=== PATIENT | female | born 1970 | race Two or more races ===

== ENCOUNTER 2023-12-15 10:27 | Emergency (ER) | payer OTHER ==
[~2023-12-15] VITALS: Ht 162.6 cm; Wt 136.1 kg
[2023-12-15] MEDS ORDERED: BACTRIM DS TAB1 EACH PO (12:21)
[2023-12-15] MEDS ORDERED: CEFTRIAXONE SODIUM 1,000 MG VIAL IM ONE (12:30)
== END 2023-12-15 12:35 | disposition home or self-care (01) ==
LOC: ER 10:27
DX: N76.0 Acute vaginitis (principal)

== ENCOUNTER 2023-12-26 05:44 | Inpatient (IN) | payer OTHER ==
[~2023-12-26] VITALS: Ht 162.6 cm; Wt 129.7 kg
[~2023-12-26 05:44] MED LIST: BACTRIM DS TAB1 EACH PO
[2023-12-26] MEDS ORDERED: METHYLPREDNISOLONE SOD SUCC 125 MG VIAL IV STA (06:17)
[2023-12-26] MEDS ORDERED: MAGNESIUM SULFATE IN WATER 4 GM/100 ML PIGGYBACK IV STA (06:18)
[2023-12-26] MEDS ORDERED: IPRATROPIUM BROMIDE 0.5 MG/2.5 ML AMPUL.NEB IH STA (06:19)
[2023-12-26] MEDS ORDERED: ALBUTEROL SULFATE 3 ML/2.5 MG AMPUL.NEB IH SCH (06:30)
[2023-12-26 07:18] LABS: HEMATOCRIT 38.6 % (36.0-45.00); HEMOGLOBIN 12.9 g/dL (12.0-15.00); MEAN CELL VOLUME 83.6 fL (80.00-100.00); MEAN CORPUSCULAR HGB CONC 33.5 g/dl (32.0-36.0); PLATELET COUNT 251 K/uL (150-450); RED BLOOD COUNT 4.61 M/uL (4.00-6.00); RED CELL DISTRIBUTION WIDTH 14.9 % (11.5-14.5)
[2023-12-26] MEDS ORDERED: INSULIN REGULAR, HUMAN 1,000 UNIT/10 ML UNITS SUBCUTANEO STA (07:48)
[2023-12-26] MEDS ORDERED: FAMOTIDINE/PF 20 MG/2 ML VIAL IV SCH (11:46)
[2023-12-26] MEDS ORDERED: levoFLOXacin IN DEXTROSE 5 % 150 ML IV SCH (11:47)
[2023-12-26] MEDS ORDERED: METHYLPREDNISOLONE SOD SUCC 40 MG VIAL IV SCH (11:48)
[2023-12-26 12:06] LABS: ABG PH 7.363 (7.35-7.45); ABG PO2 73.1 mmHg (80-100); BASE EXCESS -2.9 mmol/l; BICARBONATE 22.2 mmol/l (23-25); SaO2 93.7 %; Tco2 23.5 mmol/l; o2 21 %; puncture site RADIAL LEFT
[2023-12-26 12:07] LABS: allen test SATISFACTORY
[2023-12-26] MEDS ORDERED: IPRATROPIUM/ALBUTEROL SULFATE 3 ML AMPUL.NEB IH SCH (13:00)
[2023-12-26 13:22] LABS: CALCIUM 8.6 mg/dL (8.5-10.1); CREATININE SERUM 1.27 mg/dL (0.55-1.02); GFR 44.02; INR < 0.93; PARTIAL THROMBOPLASTIN TIME 25.4 SECONDS (22.0-34.0); POTASSIUM 3.97 mEq/L (3.5-5.1); PROTHROMBIN TIME 9.8 SECONDS (9.0-11.5)
[2023-12-26] MEDS ORDERED: FUERA DE FORMULARIO 1 U FF TD SCH (19:14)
[2023-12-26] MEDS ORDERED: ENALAPRILAT DIHYDRATE 1.25 MG/ML VIAL IV PRN (21:45)
[2023-12-26] MEDS ORDERED: ACETAMINOPHEN 500 MG GEL..CAP PO PRN (21:45)
[2023-12-27 09:54] LABS: ABG PH 7.366 (7.35-7.45); ABG PO2 85.1 mmHg (80-100); ABG pCO2 33.8 mmHg (35-45); BASE EXCESS -5.4 mmol/l; BICARBONATE 18.9 mmol/l (23-25); SaO2 95.8 %; allen test SATISFACTORY; o2 21 %; puncture site RADIAL LEFT
[2023-12-27] MEDS ORDERED: LOSARTAN POTASSIUM 50 MG TABLET PO SCH (15:09)
[2023-12-27] MEDS ORDERED: LEVALBUTEROL HCL 0.63 MG/3 ML SOLUTION IH SCH (17:00)
[2023-12-29] MEDS ORDERED: ZINC OXIDE 30 GM,NYSTATIN 30 GM,SILVER SULFADIAZINE 50 GM TOP SCH (09:00)
[2023-12-29] MEDS ORDERED: ALBUTEROL SULFATE 3 ML/2.5 MG AMPUL.NEB IH ONE (14:23)
== END 2023-12-29 17:48 | disposition left against medical advice (07) | DRG 202 ==
LOC: ER 05:44 → MEDI 12:49 → SEC-K 12:49 → MEDI 14:39
PROVIDERS: General Practice; ADMIT Internal Medicine; ATTEND Internal Medicine
DX: J40 Bronchitis, not specified as acute or chronic (principal); J18.9 Pneumonia, unspecified organism